=== PATIENT | male | born 1955 | race Caucasian/White ===

== ENCOUNTER 2018-09-13 16:15 | Emergency (ER) | payer OTHER ==
[~2018-09-13] VITALS: Ht 170.2 cm; Wt 75.1 kg
[2018-09-13 16:46] VITALS: Ht 170.2 cm; Wt 75.1 kg
--- NOTE | 2018-09-13 21:09 | ERD ---
ER Documentation Chief Complaint Chief Complaint painful abscess on central back X 1 wk HPI 63-year-old male, presents to the emergency department, complaining of 1 week with progressive painful lesion on the back. Otherwise no fever, no chills, no abdominal pain, no rashes. No distal numbness, weakness or tingling. ROS All systems reviewed and are negative except as per history of present illness. Allergies Allergies: Coded Allergies: No Known Allergy (Unverified , 09/13/18) Physical Exam Vitals Vital Signs Date Temp Pulse Resp B/P (MAP) Pulse Ox O2 O2 Flow FiO2 Time Delivery Rate 09/13/18 98.5 84 18 172/88 97 16:46 (116) Physical Exam Const: No acute distress Head: Atraumatic Eyes: Normal Conjunctiva ENT: Normal External Ears, Nose and Mouth. Neck: Full range of motion. No meningismus. Resp: Clear to auscultation bilaterally Cardio: Regular rate and rhythm, no murmurs Abd: Soft, non tender, non distended. Normal bowel sounds Skin: 4 x 4 centimeter abscess located in the mid back. Back: No midline or flank tenderness Ext: No cyanosis, or edema Neur: Awake and alert Psych: Normal Mood and Affect Procedures/MDM Vital signs stable. Differential diagnosis considered include but not limited to: Cellulitis, abscess, lipoma, neoplasm. Low suspicion for acute systemic infection. Physical examination and clinical presentation consistent most likely with skin abscess of the back. During the ED course the patient remained stable, no new complaints. The patient received treatment with incision and drainage of the area presenting overall improvement of the symptoms. Incision and drainage: Informed consent obtained, risk and benefits discussed with patient. Indication: Skin abscess abscess Location: Mid back Area cleaned and sterilized with chlorhexidine solution, 2 mL of lidocaine without epi was infiltrated in the area of the incision. 10 mm incision was made with 11 blade scalpel abscess was drained with breaking up loculation with a hemostat. 1/4 packing was placed through the incision in the abscess cavity. The patient tolerated well the procedure without complications. Results and clinical impression discussed with the patient who agrees with management. The patient is stable to be treated outpatient and will be discharged home, some side effects of prescribed medications (headache, rash, nausea, vomiting, diarrhea, drowsiness, habituation, bleeding, hypertension, interactions with other medications) were reviewed. The patient was instructed to follow up with the primary care provider in the next 48h. If symptoms persist, worsen or new symptoms develop, then patient should return to the ED immediately. Instructions explained and given directly by me to the patient in [place] with acknowledgment and demonstrated understanding. Disclaimer: Inadvertent spelling and grammatical errors are likely due to EHR/dictation software use and do not reflect on the overall quality of patient care. Also, please note that the electronic time recorded on this note does not necessarily reflect the actual time of the patient encounter. Departure Diagnosis: Primary Impression: Skin abscess Condition: Stable Patient Instructions: Abscess, Incision And Drainage Additional Instructions: Muchas allison por [facility] para alexander servicio. Esperamos que en alexander visita a la bonnie de emergencia alexander problema medico haya sido solucionado y que se sienta mucho mejor. Para estar seguros que alexander mejoria sigue en proceso, le pedimos el favor de hacer justin eliza de seguimiento medico con alexander doctor primario en los proximos 2-4 [place]. Lleve con usted estos documentos y las medicinas recetadas. Si danelle sintomas empeoran, NO SE ESPERE, por favor regrese a bonnie de emergencia INMEDIATAMENTE. En alisha que usted no tenga un mdico de atencin primaria: Llame al mdico o clnica comunitaria de referencia que aparece abajo mirna las horas de consultorio para hacer justin eliza para que le vean. CLINICAS: [facility] [phone] [facility] [phone] [facility] [phone] [address] [facility] [phone] [facility] [phone] [id number] [facility]. [phone] [address] RIN[address],FELIX MD Sep 13, 2018 21:09
[2018-09-13] MEDS ORDERED: LIDOCAINE 1% (MDV) 10 ML INJ INJ STA (21:17)
[2018-09-13] MEDS ORDERED: IBUP-1561 PO (21:21)
[2018-09-13] MEDS ORDERED: CEPH-443 PO (21:21)
[2018-09-13] MEDS ORDERED: LIDOCAINE 1% (MDV) 20 ML INJ INJ STA (21:54)
[2018-09-13 22:44] VITALS: BP 150/78; PULSE 88; RESP 20
== END 2018-09-13 22:45 | disposition home or self-care (01) ==
LOC: FTE 16:15
DX: L02.212 Cutaneous abscess of back [any part, except buttock and flank] (principal)

== ENCOUNTER 2018-09-15 05:58 | Emergency (ER) | payer OTHER ==
[~2018-09-15] VITALS: Ht 167.6 cm; Wt 77.3 kg
[~2018-09-15 05:58] MED LIST: CEPH-443 PO; IBUP-1561 PO
[2018-09-15 06:02] VITALS: BP 160/79; PULSE 81; RESP 18; Ht 167.6 cm; Wt 77.3 kg
--- NOTE | 2018-09-15 07:12 | ERD ---
ER Documentation Chief Complaint Chief Complaint wound check, was here for i and d 3 days ago HPI 63-year-old male, presents the emergency department, for a wound check. The patient has an incision and drainage of an abscess performed 3 days ago. The patient refers feeling better, no fever, no chills, good compliance with medications. ROS All systems reviewed and are negative except as per history of present illness. Medications Home Meds Active Scripts Ibuprofen* (Motrin*) 400 Mg Tab, 400 MG PO Q6H PRN for PAIN AND OR ELEVATED TEMP, #20 TAB Prov:FELIX AGUIRRE MD 09/13/18 Cephalexin* (Keflex*) 500 Mg Capsule, 500 MG PO QID for 7 Days, CAP Prov:FELIX AGUIRRE MD 09/13/18 Allergies Allergies: Coded Allergies: No Known Allergy (Unverified , 09/13/18) PMhx/Soc History of Surgery: No Anesthesia Reaction: No Hx Neurological Disorder: No Hx Respiratory Disorders: No Hx Cardiac Disorders: No Hx Psychiatric Problems: No Hx Miscellaneous Medical Probl: Yes (DM) Hx Alcohol Use: No Hx Substance Use: No Hx Tobacco Use: No Physical Exam Vitals Vital Signs Date Temp Pulse Resp B/P (MAP) Pulse Ox O2 O2 Flow FiO2 Time Delivery Rate 09/15/18 97.9 81 18 160/79 98 06:02 (106) Physical Exam Const: No acute distress Head: Atraumatic Eyes: Normal Conjunctiva ENT: Normal External Ears, Nose and Mouth. Neck: Full range of motion. No meningismus. Resp: Clear to auscultation bilaterally Cardio: Regular rate and rhythm, no murmurs Abd: Soft, non tender, non distended. Normal bowel sounds Skin: No petechiae or rashes Back: Surgical incision clean, dry and intact, stitches in place. No midline or flank tenderness Ext: No cyanosis, or edema Neur: Awake and alert Psych: Normal Mood and Affect Procedures/MDM Status post incision and drainage of abscess 2 days ago. Adequate pain control, no fever, no chills, good compliance with medications no side effects. The patient was evaluated for infection and neurovascular compromise. The wound was clean and irrigated with normal saline and dressing applied. Patient is stable, with adequate healing process, okay to discharge home, medication adherence reinforced. some side effects of prescribed medications (headache, rash, nausea, vomiting, diarrhea, drowsiness, habituation, bleeding, hypertension, interactions with other medications) were reviewed. The patient was instructed to follow up with the primary care provider in the next 48h. If symptoms persist, worsen or new symptoms develop, then patient should return to the ED immediately. Instructions explained and given directly by me to the patient with acknowledgment and demonstrated understanding. Disclaimer: Inadvertent spelling and grammatical errors are likely due to EHR/dictation software use and do not reflect on the overall quality of patient care. Also, please note that the electronic time recorded on this note does not necessarily reflect the actual time of the patient encounter. Departure Diagnosis: Primary Impression: Encounter for wound re-check Condition: Stable Patient Instructions: Wound Care Additional Instructions: Muchas allison por [facility] para alexander servicio. Esperamos que en alexander visita a la bonnie de emergencia alexander problema medico haya sido solucionado y que se sienta mucho mejor. Para estar seguros que alexander mejoria sigue en proceso, le pedimos el favor de hacer justin eliza de seguimiento medico con alexander doctor primario en los proximos 2-4 [place]. Lleve con usted estos documentos y las medicinas recetadas. Si danelle sintomas empeoran, NO SE ESPERE, por favor regrese a bonnie de emergencia INMEDIATAMENTE. En alisha que usted no tenga un mdico de atencin primaria: Llame al mdico o clnica comunitaria de referencia que aparece abajo mirna las horas de consultorio para hacer justin eliza para que le vean. CLINICAS: [facility] [phone] [facility] [phone] [facility] [phone] [address] [facility] [phone] [place] [id number] [phone] [facility]. [phone] FELIX RINCON MD Sep 15, 2018 07:12
== END 2018-09-15 08:05 | disposition home or self-care (01) ==
LOC: FTE 05:58
DX: Z48.01 Encounter for change or removal of surgical wound dressing (principal); E11.9 Type 2 diabetes mellitus without complications
CPT/HCPCS: 99281